=== PATIENT | female | born 1960 ===

== ENCOUNTER 2025-06-19 11:29 | Outpatient (AMB) | payer MEDICARE, MEDICAID, SELFPAY ==
--- NOTE | 2025-06-19 11:39 | HO.NEPHOV_ITS ---
Vital Signs 06/19/25 11:48 Height 5 ft 2.5 in Weight 161 lb 6 oz BMI 29.0 BP 80/60 L Blood Pressure Location Lt brachial Position Sitting Pulse 80 Pulse Source Pulse Oximeter Pulse Oximetry (%) 96 Oxygen Delivery Method Room Air Intake Visit Reasons: ENP: CKD STG 2-Conf Configuration Management Analyst Required: No Accompanied by: Self / Same As Patient Allergies exenatide Allergy (Verified 06/19/25 11:47) Unknown insulin glargine Allergy (Verified 06/19/25 11:47) Swelling HPI Comments Details: I had the privilege of seeing Nela in consultation for CKD and hypertension. She has longstanding poorly-controlled diabetes. DM was diagnosed when she was 33 years of age. Her last hemoglobin A1c was 9.3 . She is on insulin pump now. ( [facility]). She is legal blindness for 2 years . She had laser treatment of eyes. She denies proteinuria or neuropathy. she denies any coronary artery disease, carotid stenosis, CHF, CVA, SALOME or PAD. Her recent serum creatinine was 1.55. She denies any chest pain, shortness of breath, proximal nocturnal dyspnea, orthopnea, pedal edema, pain, hematuria, sensorineural deafness, epistaxis, recurrent sore throat, sinusitis, photosensitivity or any other systemic complaints. She does not have any new bone or back pain. She denies any renal calculi. She claims to be keeping up with hydration and avoiding nonsteroidal anti-inflammatories. She has no family history of ESRD or renal transplantation. [facility] Medical History (Updated 06/19/25 @ 11:47 by Carlos Elias MD) Diabetes mellitus type 1 HLD (hyperlipidemia) Chronic kidney disease, stage 2 (mild) Surgical History (Updated 06/19/25 @ 11:45 by Berkley Barron MA) Hx of removal of cyst H/O eye surgery Family History (Updated 06/19/25 @ 11:44 by Berkley Barron MA) Mother Diabetes mellitus Brother Cancer Sister Cancer Father Hypertension Social History Alcohol intake: current Comment: Rare Patient Tobacco Use Status: Never used Tobacco Review of Systems Const All systems reviewed & are unremarkable except as noted in HPI and below Physical Exam Const General: comfortable and no acute distress Orientation/consciousness: patient oriented x3 HEENT Head: Yes normocephalic Mouth: Normal oral and palatal mucosa present Eyes EOM: EOMs intact bilaterally Neck Neck: Yes supple Resp Auscultation: clear to auscultation bilaterally Cardio Jugular venous distension: no JVD Rate: regular rate GI Palpation (GI): Soft to palpation Auscultation: normal bowel sounds General: Yes no CVA tenderness Back/Spine/Pelvis Back: no CVA tenderness Skin General skin exam: no rashes or lesions noted Neuro General: patient oriented x3 and moves all extremities Extrem General: Yes no pedal edema Assessment & Plan Assessment & Plan (1) CKD stage 3 secondary to diabetes: Code(s): E11.22 - Type 2 diabetes mellitus with diabetic chronic kidney disease; N18.30 - Chronic kidney disease, stage 3 unspecified Category: Medical (2) Hypertension: Code(s): I10 - Essential (primary) hypertension Qualifiers: Hypertension type: primary hypertension Qualified Code(s): I10 - Essential (primary) hypertension Plan 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 Her blood sugar needs to be better controlled. She is on insulin and Ozempic. her blood pressure needs to be at goal. She is on CAROLEE-inhibitor which I shall optimize the dose if her serum potassium, hemodynamics and renal functions permit. I have ordered renal imaging and further CKD workup. She will need 24 hour urine for GFR after next visit. She may need a renal biopsy. She should maintain good hydration and avoid nonsteroidal anti-inflammatories in excess. All these have been explained in detail. Answered all questions and follow-up was given Orders: Orders Electrolytes 3 Weeks E11. - Type 2 diabetes mellitus with diabetic chronic kidney disease, N18.30 - Chronic kidney disease, stage 3 unspecified Calcium 3 Weeks E11. - Type 2 diabetes mellitus with diabetic chronic kidney disease, N18.30 - Chronic kidney disease, stage 3 unspecified Blood Urea Nitrogen 3 Weeks E11. - Type 2 diabetes mellitus with diabetic chronic kidney disease, N18.30 - Chronic kidney disease, stage 3 unspecified Vitamin D 25-OH Total 3 Weeks E11.22 - Type 2 diabetes mellitus with diabetic chronic kidney disease, N18.30 - Chronic kidney disease, stage 3 unspecified UA and rflx microscopic 3 Weeks E11. - Type 2 diabetes mellitus with diabetic chronic kidney disease, N18.30 - Chronic kidney disease, stage 3 unspecified Immunofixation Pnl, Serum 3 Weeks E11. - Type 2 diabetes mellitus with diabetic chronic kidney disease, N18.30 - Chronic kidney disease, stage 3 unspecified US renal BI 3 Weeks E11. - Type 2 diabetes mellitus with diabetic chronic kidney disease, N18.30 - Chronic kidney disease, stage 3 unspecified Complete Blood Count Auto Diff 3 Weeks E11. - Type 2 diabetes mellitus with diabetic chronic kidney disease, N18.30 - Chronic kidney disease, stage 3 unspecified Creatinine 3 Weeks E11. - Type 2 diabetes mellitus with diabetic chronic kidney disease, N18.30 - Chronic kidney disease, stage 3 unspecified Parathyroid Hormone Intact 3 Weeks E11. - Type 2 diabetes mellitus with diabetic chronic kidney disease, N18.30 - Chronic kidney disease, stage 3 unspecified Phosphorus 3 Weeks E11. - Type 2 diabetes mellitus with diabetic chronic kidney disease, N18.30 - Chronic kidney disease, stage 3 unspecified Protein Creatinine Ratio, Ur 3 Weeks E11. - Type 2 diabetes mellitus with diabetic chronic kidney disease, N18.30 - Chronic kidney disease, stage 3 unspecified Coding Level of Care Code New Pt Level 4 (41305) Diagnoses CKD stage 3 secondary to diabetes ; N18.30 Primary hypertension I10 Hypertension type: primary hypertension
[2025-06-19 11:48] VITALS: BP 80/60; PULSE 80; O2SAT 96; BMI 29.0
--- OUTSIDE RECORDS SUMMARY | 2025-06-19 16:20 | XMS_ITS | Clinical Summary ---
Author Organization [facility] Address [address] [facility] [place] [address] Care Team Providers Care Trimming Machine Operator Name Role Phone Unavailable Primary Care Provider Unavailabl e Source Comments PLEASE NOTE, if this patient is a minor, it may be UNLAWFUL to discuss sensitive information that is contained in these records (such as FAMILY PLANNING, MENTAL HEALTH or SUBSTANCE ABUSE) with the minor patient's parent or other person without the patient's specific authorization.[facility] Medications No known medications Active Problems No known active problems Social History Tobacco Use Types Packs/Day Years Used Date Smoking Tobacco: Never Passive Smoke Exposure: Never Smokeless Tobacco: Never Tobacco Cessation:Counseling Given: Not Answered Social Connections Answer Date Recorded Connectedness 0 06/13/2024 Financial Resource Strain Answer Date R ecorded Financial Resource Strain 0 2021 Stress Answer Date Recorded Stress 0 01/19/2022 Physical Activity Answer Date Recorded Physical Activity 0 01/19/2022 Food Insecurity Answer Date Recorded Food 0 06/20/2024 Transportation Needs Answer Date Record ed Transportation 0 01/19/2022 Housing Stability Answer Date Recorded Housing 0 01/19/2022 Safety and Environment Answer Date Efren rded Safety 0 01/19/2022 Utilities Answer Date Recorded Utilities 0 01/19/2022 Employment Answer Date Recorded Stress 0 06/13/2024 Comments Unknown Sex and Gender Information Value Date Recorded Sex Assigned at Female 06/08/2022 12:07 PM PDT Legal Sex Female 12:44 PM PDT Gender Identity Female 06/08/2022 12:07 PM PDT Sexual Orientation Straight 06/08/2022 12 :07 PM PDT Last Filed Vital Signs Vital Sign Reading Time Taken Comments Blood Pressure 123/75 03/17/2025 9:59 AM EDT Pulse 66 03/17/2025 9:59 AM EDT Temperature - - Respiratory Rate - - Oxygen Saturation - - Inhaled Oxygen Concentration - - Weight - - Height - - Body Mass Index - - Plan of Treatment Upcoming Encounters Date Type Department Care Team ([facility] st Contact Info) Description 09/17/2025 10:20 AM EST Office Visit [facility] [address] [place] [phone] Laura Ailin [address] [place] [address] Health Maintenance Due Date Last Done Comments Anxiety Screening 1961 Dental FMX/Pano 1961 HPV Screening 1961 Hepatitis C Screening 1961 Lipid Screening 1961 Pap + HPV 1961 HIV Screening 1976 Cervical Cancer Screening 1982 Pap Smear 1982 Breast Cancer Screening (Mammogram) 2001 CT Colonography 2006 Colonoscopy 2006 Colorectal Cancer Screening 2006 FIT/gFOBT 2006 Fecal DNA 2006 Flexible Sigmoidoscopy 2006 Imm-Zoster, Recombinant (1 of 2) 2011 Imm-Pneumococcal 50+ (2 of 2 - PCV) 10/03/2017 10/03/2016, 11/13/2001 Alcohol and Drug Screen 09/25/2024 Depression Annual Screen 09/25/2024 [id number] (2 - 2024- season) 2025 021 Imm-Influenza (#1) 2025 07/27/2023, 1 , 06/17/2020, Additional history exists Hypertension Screening (#1) 03/17/2026 Tobacco Screening 03/17/2026 03/17/2025 Dental BW 03/19/2026 03/17/2025, 08/26, 03/13/2024, Additional history exists Dental Examination 03/19/2026 03/17/2025, 1 11/14/2023, 03/13/2024, Additional history exists Dental Perio Charting 03/19/2026 03/17/2025 , 09/13/2024, 03/13/2024, Additional history exists Dental Prophy 03/19/2026 03/17/2025, 08/26, 03/13/2024, Additional history exists Diabetes Screening 05/24/2026 05/24/2023 Imm-DTaP/Tdap/Td (2 - Td or Tdap) 10/03/2026 10/03/2016, 07/31/2013, 07/28/2003 Cervical Ablation/Cold-Knife Conization Discontinued Cervical Cryotherapy Discontinued Colposcopy Discontinued Endometrial Biopsy Discontinued Excision/Leep Discontinued HPV Genotyping Discontinued Vaginal Pap Discontinued Vulvoscopy Discontinued Procedures Procedure Name Priority Date/Time Associated Diagnosis Comments COMP PERIODONTAL EVALUATION - NEW/EST PATIENT Routine 03/17/2025 9:40 AM EDT Defective dental anglican BITEWINGS - FOUR RADIOGRAPHIC IMAGES Routine 03/17/2025 9:40 AM EDT Defective dental anglican PROPHYLAXIS - ADULT Routine 03/17/2025 9 :40 AM EDT Defective dental anglican PERIODIC ORAL EVALUATION ESTABLISHED PATIENT Routine 03/17/2025 9:40 AM EDT Defective dental anglican from Last 3 Months or Most Recently Relevant to Health Maintenance Insurance [place] MEDICAID DENTAL
--- OUTSIDE RECORDS SUMMARY | 2025-06-19 16:20 | XMS_ITS | Clinical Summary ---
Author Organization [facility] Address [address] [place] [address] Care Team Providers Care Fruit Rancher Name Role Phone Areli Slaughter MD Primary Care Provider [phone] Allergies Active Allergy Reactions Criticality Noted Date Comments Exenatide Microspheres Itching,Other 06/17/2020 Other reaction(s): burning Lumps at injection site Insulin Glargine Itching 06/17/2020 Other reaction(s): burning, Other (See Comments) Lumps at injection site Medications atorvastatin (Lipitor) 40 mg tablet Take 40 mg by mouth in the morning. 2 Active Dexcom G6 Sensor device SMARTSIG:Topica l Every 10 Days 2 Active brimonidine (AlphaGAN P) 0.2 % ophthalmic solution Administer 1 drop into both eyes in the morning, at noon, and at bedtime. 2 Active Restasis 0.05 % ophthalmic emulsion Administer into both eyes if needed. 2 Active NovoLOG U-100 Insulin aspart 100 unit/mL injection Inject under the skin. 2 Active latanoprost (Xalatan) 0.005 % ophthalmic solution Administer 1 drop into the left eye at bedtime. 2 Active dorzolamide (Trusopt) 2 % ophthalmic solution Administer 1 drop into both eyes in the morning, at noon, and at bedtime. 2 Active lisinopril 5 mg tablet Take 5 mg by mouth in the morning. 2 Active timolol (Timoptic) 0.25 % ophthalmic solution Administer 1 drop into affected eye(s) twice a day. Active Rhopressa 0.02 % ophthalmic solution Administer 1 drop into the left eye twice daily. 3 Active Active Problems Problem Noted Date Diagnosed Date Glaucoma 03/12/2024 Overview (03/12/2024): Bilateral glaucoma, managed by Dr. Wilkes Hypothyroidism 03/12/2024 Cervical intraepithelial neoplasia grade 1 03/12 Mixed hyperlipidemia 08/05/2020 Macular degeneration 08/05/2020 Overview (03/12/2024): Left eye. Managed by Dr. Wilkes. DDD (degenerative disc disease), lumbar 08/05/20 20 Overview (03/12/2024): DDD L5-S1. 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 08/09/2018 Pseudophakia of both eyes 08/09/2018 Dry eye syndrome of both eyes 08/09/2018 Acute iritis, right eye 08/09/2018 Social History Tobacco Use Types Packs/Day Years Used Date Smoking Tobacco: Never Smokeless Tobacco: Never Comments Unknown Sex and Gender Information Value Date Recorded Sex Assigned at Not on file Legal Sex Female 7:59 AM EST Gender Identity Not on file Sexual Orientation Not on file Plan of Treatment Health Maintenance Due Date Last Done Comments CT Colonography 1961 Colonoscopy 1961 Colorectal Cancer Screening 1961 FIT-DNA 1961 FIT 1961 FOBT 1961 HIV Screening 1961 High Risk LDL 1961 Lipid Panel 1961 Sigmoidoscopy 1961 Diabetes: Urine Protein Screening 1961 MMR Vaccines (1 of 1 - Standard series) 1962 Diabetes: Foot Exam 1971 Hepatitis C Screening 1979 Pap Smear 1982 Cervical Cancer Screening 1991 HPV/Cotest 1991 Mammogram 2001 Zoster Vaccines (1 of 2) 2011 Pneumococcal Vaccine: 50+ Years (2 of 2 - PCV) 10/03/2017 10/03/2016, 11/13/2001 Diabetes: Hemoglobin A1C 05/24/2024 05/24/2023 Depression Screening 09/25/2024 Medicare Annual Wellness (AWV) 09/25/2024 Diabetes: Retinopathy Screening 03/12/2025 03/12/2024, 03/12/2024, 03/12/2024, Additional history exists COVID-19 Vaccine ( season) 2025 07/27/2023, 08/30/2021, 02/03/2021, Additional history exists Influenza Vaccine (#1) 2025 , 06/25/2021, 06/17/2020, Additional history exists DTaP/Tdap/Td Vaccines (2 - Td or Tdap) 10/03/2026 10/03/2016, 07/31/2013, 07/28/2003 Pneumococcal Vaccine: Pediatrics (0 to 5 Years) and At-Risk Patients (6 to 49 Years) Discontinued 10/03/2016, 11/13/2001 HIB Vaccines Aged Out No longer eligi ble based on patient's age to complete this topic HPV Vaccines Aged Out No longer eligi ble based on patient's age to complete this topic Hepatitis A Vaccines Aged Out No long er eligible based on patient's age to complete this topic Hepatitis B Vaccines Aged Out No long er eligible based on patient's age to complete this topic IPV Vaccines Aged Out No longer eligi ble based on patient's age to complete this topic Meningococcal B Vaccine Aged Out No l onger eligible based on patient's age to complete this topic Meningococcal Vaccine Aged Out No trang radha eligible based on patient's age to complete this topic Rotavirus Vaccines Aged Out No longer eligible based on patient's age to complete this topic Insurance MEDICAID [employer] Advance Directives Documents on File Type Date Recorded Patient Car Audio Installer Expl anation Health Care Proxy 08/21/2018 6:02 PM Conv ersion - External Healthcare Proxy ([facility]) Care Teams Fruit Rancher Relationship Specialty Start Date End Date Areli Slaughter MD [address] [place] [phone] PCP - General 10/29/21
--- OUTSIDE RECORDS SUMMARY | 2025-06-19 16:20 | XMS_ITS | Clinical Summary ---
Author Organization [facility] Address [address] [place] [id number] Phone Care Team Providers Care Printing Engineer Name Role Phone Annmarie Quintanilla MD Unavailable [phone] Unknown, Unknown Primary Care Provider Ponce lable Allergies Active Allergy Reactions Criticality Noted Date Comments Exenatide Microspheres Itching,Other (Se e Comments) 06/17/2020 Lumps at injection site Insulin Glargine Itching,Other (See Comments) 06/17/2020 Lumps at injection site Medications timolol (TIMOPTIC) 0.25 % ophthalmic solution Place 1 drop into each eye 2 (two) times a day. Active diabetic supplies, miscellan. (Rapid Mobile REMOTE CONTROL) Misc by Miscellaneous route. Active insulin aspart prot/insuln asp (NOVOLOG MIX 70-30 U-100 INSULN SUBQ) Inject under the skin. Via pump Active RESTASIS 0.05 % suspension 10/24/19 22 Active brimonidine 0.2 % ophthalmic solution INSTILL 1 DROP INTO BOTH EYES 3 TIMES A DAY 12/09/19 22 Active dorzolamide (TRUSOPT) 2 % ophthalmic solution INSTILL 1 DROP INTO BOTH EYES 3 TIMES A DAY 12/14/19 22 Active latanoprost (XALATAN) 0.005 % ophthalmic solution INSTILL 1 DROP INTO LEFT EYE DAILY 11/21/19 22 Active atorvastatin (LIPITOR) 40 MG tabletIndications: Mixed hyperlipidemia TAKE 1 TABLET BY MOUTH EVERY DAY 90 tablet 3 05/09/20 22 Active lisinopril (PRINIVIL,ZESTRIL) 5 MG tablet TAKE 1 TABLET BY MOUTH EVERY DAY 90 tablet 3 05/09/20 22 Active Active Problems Problem Noted Date Diagnosed Date Other specified diabetes mellitus with hyperglyc emia 08/05/2020 Overview (08/05/2020): Initially diagnosed as T2DM in 1998, changed to T1DM in 2019. Macular degeneration 08/05/2020 Overview (08/05/2020): Left eye. Managed by Dr. Wilkes. Lumbar spondylosis 08/05/2020 Overview (08/05/2020): L4-L5 anterior spondylosis. DDD (degenerative disc disease), lumbar 08/05/20 20 Overview (08/05/2020): DDD L5-S1. Mixed hyperlipidemia 08/05/2020 Glaucoma Overview (08/05/2020): Bilateral glaucoma, managed by Dr. Wilkes Immunizations Immunization Administration Dates Next Due COVID-19 (Pre-07/17) Pfizer Vaccine, mRNA, PF 08/30/2021 INFLUENZA, SPLIT VIRUS, TRIV ALENT W/ PRESERVATIVE IM 09/08/2015,07/24/2014,07/31/2013,07/31,08/02/2011,06/10/2010 Influenza Quadrivalent MDCK Preservative Free IM 07/27/2023 Influenza Quadrivalent Prese rvative Free IM 06/25/2021,06/17/2020,06/27/2019,07/17 Influenza, Unspecified Formulation 10/03/2016 Influenza, whole 08/31/2007,08/07/2006 Pneumococcal polysaccharide PPSV23 10/03/2016, Td, unspecified formulation 07/31/2013, 3 Tdap 10/03/2016 Social History Tobacco Use Types Packs/Day Years Used Date Smoking Tobacco: Never Smokeless Tobacco: Never Alcohol Use Standard Drinks/Week Comments Yes 2 (1 standard drink = 0.6 oz pur e alcohol) 1 drink, wine cooler, 2 x week Education Answer Date Recorded Are you interested in more education? Not on amandeep e 01/20/2023 Are you concerned about learning? Not on file 01/20/2023 No 01/20/2023 No 01/20/2023 Digital Access Answer Date Recorded No 02/21/2023 No 02/21/2023 Reliable internet access at home? Not on file 02/21/2023 Device with a working camera? Not on file Comments Unknown Sex and Gender Information Value Date Recorded Sex Assigned at Female 04/29/2020 9:46 PM EDT Legal Sex Female 11:12 AM EDT Gender Identity Female 04/29/2020 9:46 PM EDT Sexual Orientation Straight 04/29/2020 9: 46 PM EDT Last Filed Vital Signs Vital Sign Reading Time Taken Comments Blood Pressure 118/68 12/20/2021 4:09 PM EDT Pulse 67 12/20/2021 4:09 PM EDT Temperature 36.3 C (97.3 F) 11/09/2020 2:19 PM EST Respiratory Rate 16 12/20/2021 4:09 PM EDT Oxygen Saturation 98% 12/20/2021 4:09 PM EDT Inhaled Oxygen Concentration - - Weight 74.6 kg (164 lb 6.4 oz) 12/20/2021 4:09 P M EDT Height 159.4 cm (5' 2.76 ) 12/20/2021 4:09 PM ED T Body Mass Index 29.35 12/20/2021 4:09 PM EDT Plan of Treatment Health Maintenance Due Date Last Done Comments BLOOD PRESSURE 1961 HEPATITIS C SCREENING 1979 HIV ONE-TIME SCREENING (18-65 YEARS) 1979 COLOGUARD 2006 FIT TEST 2006 FOBT 2006 SIGMOIDOSCOPY 2006 VIRTUAL COLONOSCOPY 2006 ZOSTER VACCINES (1 of 2) 2011 PNEUMOCOCCAL VACCINES (50+ years) (2 of 2 - PCV) 10/03/2017 10/03/2016, 11/13/2001 HEMOGLOBIN A1C 07/02/2020 04/01/2020 POTASSIUM LEVEL 04/01/2021 04/01/2020 RSV VACCINE (1 - Risk 60-74 years 1-dose series) 2021 COLONOSCOPY 05/07/2022 05/07/2012 COLORECTAL CANCER SCREENING 05/07/2022 PAP SMEAR 06/05/2022 06/05/2019 CREATININE LEVEL 12/20/2022 12/20/2021, 04/01/2020 DEPRESSION SCREENING 12/20/2022 12/20/2021 DIABETIC EYE EXAM 05/23/2024 05/23/2023, , 06/08/2021, Additional history exists MAMMOGRAM 03/23/2025 03/23/2023, 02/24, 03/20/2021, Additional history exists INFLUENZA VACCINE (#1) 2025 , 06/25/2021, 06/17/2020, Additional history exists COVID-19 VACCINE ( season) 2025 07/27/2023, 08/30/2021, 02/03/2021, Additional history exists Adult Td,Tdap Booster 10/03/2026 10/03/2016 , 07/31/2013, 07/28/2003 SMOKING STATUS SCREENING (Once After 26 Yrs) Completed 12/20/2021 HEPATITIS A VACCINES Aged Out No long er eligible based on patient's age to complete this topic HIB VACCINES Aged Out No longer eligi ble based on patient's age to complete this topic MENINGOCOCCAL VACCINES (ACWY) Aged Out No longer eligible based on patient's age to complete this topic MENINGOCOCCAL VACCINES (B) Aged Out N o longer eligible based on patient's age to complete this topic Medical Devices Not on file Procedures Procedure Name Priority Date/Time Associated Diagnosis Comments DIABETES EYE EXAM FOR RESULT ENTRY ONLY Routine 05/23/2023 MAMMOGRAPHY Routine 03/23/2023 OUTSIDE HEMOGLOBIN A1C Routine 04/01/2020 OUTSIDE POTASSIUM LEVEL Routine 04/01/2020 OUTSIDE SERUM CREATININE LEVEL Routine 04/01/2020 PAP SMEAR FOR RESULT ENTRY ONLY Routine 06/05/2019 COLONOSCOPY FOR RESULT ENTRY ONLY Routine 05/07/2012 from Last 3 Months or Most Recently Relevant to Health Maintenance Results * DIABETES EYE EXAM FOR RESULT ENTRY ONLY (05/23/2023) Result [facility] Historical Seb [facility] HEALTH MAINTENANCE Final Result * MAMMOGRAPHY FOR RESULT ENTRY ONLY (03/23/2023) John Daley MD HEALTH MAINTENANCE Edited Result - Final * Outside Potassium Level (04/01/2020) Pathologist [facility] Potassium level - External 4.2 3.4 - 5.0 mmol/L Result [facility] Provider LAB BLOOD ORDERABLES Daria l Result * Outside HbA1c (04/01/2020) Pathologist [facility] Hemoglobin A1c - External 8.9 % Result [facility] Provider LAB BLOOD ORDERABLES Daria l Result * (ABNORMAL) Outside Serum Creatinine Level (04/01/2020) Pathologist [facility] Creatinine, serum - External 1.4(A) 0.8 - 1.3 mg/dL Result [facility] Provider LAB BLOOD ORDERABLES Daria l Result * PAP SMEAR FOR RESULT ENTRY ONLY (06/05/2019) [facility] Pap smear NILM, HPV negative Result [facility] Provider HEALTH MAINTENANCE Final Result * COLONOSCOPY FOR RESULT ENTRY ONLY (05/07/2012) [facility]ologist [facility] Colonoscopy 10 yr recall Result [facility] Se[facility] HEALTH MAINTENANCE Final Result from Last 3 Months or Most Recently Relevant to Health Maintenance Insurance MEDICARE PART A & B MEDICARE PART A & B MEDICARE PART A & B MEDICARE PART A & B MEDICARE PART A & B MEDICARE PART A & B MEDICARE PART A & B MEDICARE PART A & B MEDICARE PART A & B Care Teams Printing Engineer Relationship Specialty Start Date End Date Unknown, Unknown, MD PCP - General 07/28/23 Annmarie Quintanilla MD [address] [place] [phone] [email or web address] Endocrinology 12/06/21 Additional Source Comments The information contained in this document represents components of the legal health record. It is not the complete legal health record.[facility]
== END 2025-06-19 12:09 | disposition home or self-care (01) ==
LOC: HO.HKAS 11:30
PROVIDERS: PCP Internal Medicine; Referring Provider Internal Medicine; Visit Provider Internal Medicine Nephrology
DX: E11.22 Type 2 diabetes mellitus with diabetic chronic kidney disease (principal); N18.30 Chronic kidney disease, stage 3 unspecified; I10 Essential (primary) hypertension
CPT/HCPCS: 99204

== ENCOUNTER → 2025-06-19 11:29 | Outpatient (BNVA) | payer MEDICARE, MEDICAID, SELFPAY | PROVIDERS: PCP Internal Medicine; Referring Provider Internal Medicine; Visit Provider Internal Medicine Nephrology | DX: E11.22 Type 2 diabetes mellitus with diabetic chronic kidney disease (principal); N18.30 Chronic kidney disease, stage 3 unspecified; I10 Essential (primary) hypertension | CPT/HCPCS: 99202 ==

== ENCOUNTER 2025-06-23 10:56 | Outpatient (REF) | payer MEDICARE, MEDICAID, SELFPAY ==
--- OUTSIDE RECORDS SUMMARY | 2025-06-23 12:27 | XMS_ITS | Clinical Summary ---
Author Organization [facility] Address [address] [facility] [place] [address] Care Team Providers Care Correctional Corporal Name Role Phone Unavailable Primary Care Provider [...] Upcoming Encounters Date Type Department Care Team ([facility] st Contact Info) Description 09/17/2025 10:20 AM EST Office Visit [facility] [address] [place] [phone] Laura Ailin [address] [place] [address] Health Maintenance Due Date Last Done Comments [...] Drug Screen 09/25/2024 Depression Annual Screen 09/25/2024 [id number] (2 - 2024- season) 2025 021 Imm-Influenza [...] Routine 03/17/2025 9:40 AM EDT Defective dental mandaen BITEWINGS - FOUR RADIOGRAPHIC IMAGES Routine 03/17/2025 9:40 AM EDT Defective dental mandaen PROPHYLAXIS - ADULT Routine 03/17/2025 9 :40 AM EDT Defective dental mandaen PERIODIC ORAL EVALUATION ESTABLISHED PATIENT Routine 03/17/2025 9:40 AM EDT Defective dental mandaen from Last 3 Months or Most Recently Relevant to Health Maintenance Insurance [place] MED[place]ID DENT[place]
--- OUTSIDE RECORDS SUMMARY | 2025-06-23 12:27 | XMS_ITS | Encounter Summary ---
Author Organization [facility] Address [address] [place] [address] Care Team Providers Care Polygraph Examiner Name Role Phone Paulino Bonds MD Primary Care Provider [phone] Encounter Details Date Type Department Care Team (Late st Contact Info) Description 06/03/2025 Telephone Internal Medicine - [place] [address] [place] [phone] Paulino Bonds MD 175 [facility] [address] [place] [address] Social History Tobacco Use Types Packs/Day Years Used Date Smoking Tobacco: Never Smokeless Tobacco: Never Alcohol Use Standard Drinks/Week Comments Never 0 (1 standard drink = 0.6 oz pur e alcohol) Comments Unknown Sex and Gender Information Value Date Recorded Sex Assigned at Not on file Legal Sex Female 6:55 AM EST Gender Identity Female 05/25/2025 9:51 AM EDT Sexual Orientation Not on file documented as of this encounter Progress Notes * Shira Nunn MA - 06/03/2025 3:13 PM EDT Spoke to patient and stated notes and blood work were faxed over to specialist also faxed referral. * Jordana Mancuso - 06/03/2025 10:51 AM EDT Request to fax last office note All lab and med list to Dr. Elias/Nephrology [address] [place] [address] Per patient request documented in this encounter Plan of Treatment Upcoming Encounters Date Type Department Care Team (Late st Contact Info) Description 11/28/2025 9:45 AM EST Office Visit Internal Medicine - [place] [address] [phone] Paulino Bonds MD [address] [address] documented as of this encounter Visit Diagnoses Not on filedocumented in this encounter Care Teams Polygraph Examiner Relationship Specialty Start Date End Date Paulino Bonds MD [address] [address] PCP - General 11/14/23 documented as of this encounter
--- OUTSIDE RECORDS SUMMARY | 2025-06-23 12:27 | XMS_ITS | Clinical Summary ---
Author Organization 175 [facility] Address [address] [place] [address] Phone Care Team Providers Care Facilities Engineering Manager Name Role Phone Paulino Bonds MD Primary Care Provider [phone] Allergies Active Allergy Reactions Criticality Noted Date Comments Exenatide 11/28/2023 Insulin Glargine Low 11/28/2023 Other Reaction(s): injection site swelling Medications bisacodyL (DULCOLAX) 5 mg EC tablet Take 2 tabs at 6pm as directed. 01/17/20 24 Active brimonidine (ALPHAGAN) 0.2 % ophthalmic solution 1 drop 3 (three) times a day. Active cycloSPORINE 0.05 % drops Place 1 Drop into the left eye 2 times daily. Active dorzolamide (TRUSOPT) 2 % ophthalmic solution Administer 1 drop into both eyes 3 (three) times a day. Active latanoprost (XALATAN) 0.005 % ophthalmic solution Place 1 Drop into the left eye at bedtime. Active insulin aspart (NovoLOG) 100 UNIT/ML injection Inject into the skin. Active TIMOLOL OPHT TIMOLOL HEMIHYDRATE OP Sig - Route: apply 1 Drop to the eye 2 times daily. - Ophthalmic Class: Historic Active betamethasone dipropionate (DIPROSONE) 0.05 % cream Apply twice a day on the hand the rash for 7 days 45 g 3 11/28/19 25 Active lisinopriL (PRINIVIL,ZESTR IL) 5 mg tablet Take 1 tablet (5 mg total) by mouth 1 (one) time each day. 90 tablet 1 03/31/20 25 Active atorvastatin (LIPITOR) 80 mg tablet Take 1 tablet (80 mg total) by mouth 1 (one) time each day. 90 each 1 05/30/20 25 Active atorvastatin (LIPITOR) 40 mg tablet Take 1 tablet (40 mg total) by mouth 1 (one) time each day. 90 tablet 1 10/15/19 25 025 Discontinued Active Problems Problem Noted Date Diagnosed Date Hyperlipidemia DM type 1 (diabetes mellitus , type 1) ([facility] V24, [facility] V28) Resolved Problems Problem Noted Date Diagnosed Date Resolved Date HTN (hypertension) Encounters Date Type Department Care Team Description 06/03/2025 Telephone Internal Medicine [address] [address] Paulino Bonds MD 05/30/2025 9:45 AM EDT Office Visit Internal Medicine [address] [phone] Paulino Bonds MD Primary hypertension (Primary Dx); Hypercholesterolemia; Type 2 diabetes mellitus without complication, with long-term current use of insulin ([facility] V24, [facility] V28); CKD (chronic kidney disease) stage 2, GFR 60-89 ml/min from Last 3 Months Medical History Medical History Date Comments Hyperlipidemia DM type 1 (diabetes mellitus, type 1) ([facility] V 24, [facility] V28) Social History Tobacco Use Types Packs/Day Years [...] AM EDT Sexual Orientation Not on file Obstetrics History Last Filed Vital Signs Vital Sign Reading Time Taken Comments Blood Pressure 120/60 05/30/2025 9:36 AM EDT Pulse 69 05/30/2025 9:36 AM EDT Temperature 36.1 C (96.9 F) 05/30/2025 9:36 AM EDT Respiratory Rate - - Oxygen Saturation 98% 05/30/2025 9:36 AM EDT Inhaled Oxygen Concentration - - Weight 71.8 kg (158 lb 6.4 oz) 05/30/2025 9:36 A M EDT Height 157.5 cm (5' 2 ) 05/30/2025 9:36 AM EDT Body Mass Index 28.97 05/30/2025 9:36 AM EDT Plan of Treatment Upcoming Encounters Date Type Department Care Team (Late st Contact Info) Description 11/28/2025 9:45 AM EST Office Visit Internal Medicine - [place] [address] [facility] [address] [place] [phone] Paulino Bonds MD [address] [facility] [address] [place] [address] Health Maintenance Due Date Last Done Comments Breast Cancer Screening 1961 Diabetes: Annual Foot Exam 1971 Diabetes: Annual Retina Eye Exam 1971 Cervical Cancer Screening: Pap Smear 1982 Zoster Vaccines (1 of 2) 2011 Pneumococcal Vaccine: 50+ Years (2 of 2 - PCV) 10/03/2017 10/03/2016, 11/13/2001 RSV Immunization Adult Patients (1 - Risk 60-74 years 1-dose series) 2021 HIV Screening 04/23/2024 Hepatitis C Screening 04/23/2024 Medicare Annual Wellness Visit 04/23/2024 Social Influencers of Health Screening 04/23/2024 Depression Screening 09/25/2024 Diabetes: Annual Urine Albumin-Creatinine Ratio (uACR) 11/27/2024 Influenza Vaccine (#1) 2025 3, 06/25/2021, 06/17/2020, Additional history exists Diabetes: Blood Sugar Control Test (HGBA1C) 11/05/2025 05/05/2025 Diabetes: Annual GFR (Glomerular Filtration Rate) 05/05/2026 05/05/2025 Hypertension/CHF/CAD Annual BMP Blood Test 05/05/2026 05/05/2025 DTaP,Tdap,and Td Vaccines (4 - Td or Tdap) 10/03/2026 10/03/2016, 07/31/2013, 07/28/2003 Cholesterol Screening (Lipid Panel) 05/05/2030 05/05/2025 Colorectal Cancer Screening: Colonoscopy 01/30/2034 01/31/2024 COVID-19 Vaccine Completed 06/15/2024, 10/2022, 08/30/2021, Additional history exists HIB Vaccines Aged Out No longer eligi [...] on patient's age to complete this topic MMR Vaccines Aged Out No longer eligi ble based on patient's age to complete this topic Meningococcal ACWY Vaccine Aged Out N o longer eligible based on patient's age to complete this topic Meningococcal B Vaccine Aged Out No l onger eligible based on patient's age to complete this topic RSV Immunization Patients Under 20 months Aged Out No longer eligible based on patient's age to complete this topic Varicella Vaccines Aged Out No longer eligible based on patient's age to complete this topic Procedures Procedure Name Priority Date/Time Associated Diagnosis Comments THYROID STIMULATING HORMONE Routine 05/30/2025 10:23 AM EDT Primary hypertension Hypercholesterolemia Type 2 diabetes mellitus without complication, with long-term current use of insulin ([facility] V24, [facility] V28) CKD (chronic kidney disease) stage 2, GFR 60-89 ml/min HEMOGLOBIN A1C Routine 05/05/2025 9:17 AM EDT 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, unspecified retinopathy severity (CMS/HCC V24, CMS/HCC V28) LIPID PANEL WITH REFLEX TO DIRECT LDL Routine 05/05/2025 9:17 AM EDT Hyperlipidemia, unspecified hyperlipidemia type COMPREHENSIVE METABOLIC PANEL Routine 05/05/2025 9:17 AM EDT 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, unspecified retinopathy severity (CMS/HCC V24, [facility] V28) Hyperlipidemia, unspecified hyperlipidemia type COLONOSCOPY Routine 01/31/2024 from Last 3 Months or Most Recently Relevant to Health Maintenance Results * Thyroid stimulating hormone (05/30/2025 10:23 AM EDT) Pathologist [facility] TSH 3.60 0.40 - 4.00 mcIU/mL LAB CHEMISTRY METHOD 05/30/2025 3:01 PM EDT [facility] Blood Venous blood specimen / Unknown Venipuncture / Unknown 05/30/2025 10:23 AM EDT 05/30/2025 10:23 AM EDT us Paulino Bonds MD LAB BLOOD ORDERABLES Final Resul t [facility] [address] [place] [address], [place] [phone] * (ABNORMAL) Lipid panel with reflex to direct LDL (05/05/2025 9:17 AM EDT) Pathologist [facility] Cholesterol 249(H) 0 - 200 mg/dL LAB CHEMISTRY METHOD 05/05/2025 10:41 AM EDT [facility] Triglycerides 98 0 - 150 mg/dL LAB CHEMISTRY METHOD 05/05/2025 10:[address] [facility] HDL 94 >=40 mg/dL LAB CHEMISTRY METHOD 05/05/2025 10:41 AM EDT [facility] LDL Calculated 135(H) 0 - 100 mg/dL LAB CHEMISTRY METHOD 05/05/2025 10:[address] [facility] Comment:Estimated LDL Calcul ated using equation: Total cholesterol - HDL cholesterol - (Triglycerides/5) VLDL Cholesterol Don 19.6 mg/dL LAB CHEMISTRY METHOD 05/05/2025 10:[address] [facility] Non HDL Chol. (LDL+VLDL) 155(H) <145 mg/dL LAB CHEMISTRY METHOD 05/05/2025 10:41 AM EDT [facility] Chol/HDL Ratio 2.6 0.0 - 4.4 LAB CHEMISTRY METHOD 05/05/2025 10:41 AM EDT [facility] Blood Venous blood specimen / Unknown Venipuncture / Unknown 05/05/2025 9:17 AM EDT 05/05/2025 9:17 AM EDT Emily ESPARZA LAB BLOOD ORDERABLES Fin al Result Performing Organization Address [facility] de Phone Number [facility] [address] [place] [address], [place] [phone] * (ABNORMAL) Hemoglobin A1c (05/05/2025 9:17 AM EDT) Hemoglobin A1C 9.3(H) <6.5 % LAB CHEMISTRY METHOD 05/05/2025 11:30 AM EDT [facility] Mean Bld Glu Estim. 220 mg/dL LAB CHEMISTRY METHOD 05/05/2025 11:30 AM EDT [facility] Blood Venous blood specimen / Unknown Venipuncture / Unknown 05/05/2025 9:17 AM EDT 05/05/2025 9:17 AM EDT us Emily ESPARZA LAB BLOOD ORDERABLES Fin al Result Performing Organization Address [facility]/ZIP Co de Phone Number [facility] [address] [place] [address], [place] [phone] * (ABNORMAL) Comprehensive metabolic panel (05/05/2025 9:17 AM EDT) Sodium 140 133 - 145 mmol/L LAB CHEMISTRY METHOD 05/05/2025 10:32 AM EDT [facility] Potassium 4.4 3.5 - 5.5 mmol/L LAB CHEMISTRY METHOD 05/05/2025 10:32 AM EDT [facility] Chloride 106 96 - 110 mmol/L LAB CHEMISTRY METHOD 05/05/2025 10:[address] [facility] CO2 29 21 - 32 mmol/L LAB CHEMISTRY METHOD 05/05/2025 10:[address] [facility] Anion Gap 5 3 - 11 LAB CHEMISTRY METHOD 05/05/2025 10:[address] [facility] Glucose 102(H) 70 - 100 mg/dL LAB CHEMISTRY METHOD 05/05/2025 10:[address] [facility] BUN 36(H) 5 - 25 mg/dL LAB CHEMISTRY METHOD 05/05/2025 10:[address] [facility] Creatinine 1.55(H) 0.50 - 1.10 mg/dL LAB CHEMISTRY METHOD 05/05/2025 10:[address] [facility] eGFR 37(L) >=60 mL/min/1. 73m2 LAB CHEMISTRY METHOD 05/05/2025 10:[address] [facility] Comment:Calculation based on the Chronic Kidney Disease Epidemiology Collaboration (CKD-EPI) equation refit without adjustment for race. BUN/Creatinine Ratio 23.2 LAB CHEMISTRY METHOD 05/05/2025 10:[address] [facility] Calcium 9.3 8.5 - 10.5 mg/dL LAB CHEMISTRY METHOD 05/05/2025 10:[address] [facility] AST (SGOT) 15 10 - 42 unit/L LAB CHEMISTRY METHOD 05/05/2025 10:[address] [facility] ALT (SGPT) 31 10 - 60 unit/L LAB CHEMISTRY METHOD 05/05/2025 10:[address] [facility] Alkaline Phosphatase 117 42 - 121 unit/L LAB CHEMISTRY METHOD 05/05/2025 10:[address] [facility] Total Protein 7.6 6.0 - 8.0 g/dL LAB CHEMISTRY METHOD 05/05/2025 10:32 AM EDT [facility] Albumin 3.9 3.2 - 5.0 g/dL LAB CHEMISTRY METHOD 05/05/2025 10:32 AM EDT [facility] Total Bilirubin 0.4 0.0 - 1.4 mg/dL LAB CHEMISTRY METHOD 05/05/2025 10:32 AM EDT [facility] Blood Venous blood specimen / Unknown Venipuncture / Unknown 05/05/2025 9:17 AM EDT 05/05/2025 9:17 AM EDT Emily ESPARZA LAB BLOOD ORDERABLES Fin al Result [facility] [address] [place] [address], [place] [phone] * Colonoscopy (01/31/2024) Colonoscopy abnormal, abstracted Anatomical Region Laterality Modality Other Historical Provider HEALTH MAINTENANCE Final Result from Last 3 Months or Most Recently Relevant to Health Maintenance Insurance [place]ICA[place] [employer] MEDICARE ADVANTAGE Care Teams Facilities Engineering Manager Relationship Specialty Start Date End Date Paulino Bonds MD [address] [address] PCP - General 11/14/23
--- OUTSIDE RECORDS SUMMARY | 2025-06-23 12:27 | XMS_ITS | Clinical Summary ---
Author Organization [facility] Address [address] [facility] [address] [place] [address] Care Team Providers Care Dogger Name Role Phone Areli Slaughter MD Primary Care Provider [phone] Allergies Active Allergy Reactions Criticality Noted Date [...] Documents on File Type Date Recorded Patient Operating Room Technologist Expl anation Health Care Proxy 08/21/2018 6:02 PM Conv ersion - External Healthcare Proxy ([facility]) Care Teams Dogger Relationship Specialty Start Date End Date Areli Slaughter MD [address] [place] [id number] PCP - General 10/29/21
--- OUTSIDE RECORDS SUMMARY | 2025-06-23 12:28 | XMS_ITS | Clinical Summary ---
Author Organization [facility] Address [address] [place] [phone] Phone Care Team Providers Care It Systems Manager Name Role Phone Annmarie Quintanilla MD Unavailable [phone] Unknown, Unknown Primary Care Provider Ponce lable Allergies Active Allergy Reactions Criticality Noted Date Comments Exenatide Microspheres Itching,Other (Se e Comments) 06/17/2020 Lumps at injection site Insulin Glargine Itching,Other (See Comments) 06/17/2020 Lumps at injection site Medications timolol (TIMOPTIC) 0.25 % ophthalmic solution Place 1 drop into each eye 2 (two) times a day. Active diabetic supplies, miscellan. (3 day Blinds REMOTE CONTROL) Misc by Miscellaneous route. Active [...] EXAM FOR RESULT ENTRY ONLY (05/23/2023) Result [facility] Historical Seb [facility] HEALTH MAINTENANCE Final Result * MAMMOGRAPHY FOR RESULT ENTRY ONLY (03/23/2023) John Daley MD HEALTH MAINTENANCE Edited Result - Final * Outside Potassium Level (04/01/2020) Pathologist [facility] Potassium level - External 4.2 3.4 - 5.0 mmol/L Result [facility] Provider LAB BLOOD ORDERABLES Daria l Result * Outside HbA1c (04/01/2020) Pathologist [facility] Hemoglobin A1c - External 8.9 % Result [facility] Provider LAB BLOOD ORDERABLES Daria l Result * (ABNORMAL) Outside Serum Creatinine Level (04/01/2020) Pathologist [facility] Creatinine, serum - External 1.4(A) 0.8 - 1.3 mg/dL Result [facility] Provider LAB BLOOD ORDERABLES Daria l Result * PAP SMEAR FOR RESULT ENTRY ONLY (06/05/2019) Pathologist [facility] Pap smear NILM, HPV negative Result [facility] Provider HEALTH MAINTENANCE Final Result * COLONOSCOPY FOR RESULT ENTRY ONLY (05/07/2012) Pathologist [facility] Colonoscopy 10 yr recall Result [facility] Seb [facility] HEALTH MAINTENANCE Final Result [...] MEDICARE PART A & B Care Teams It Systems Manager Relationship Specialty Start Date End Date Unknown, Unknown, MD PCP - General 07/28/23 Annmarie Quintanilla MD [address] [place] [id number] [email or web address] Endocrinology 12/06/21 Additional Source Comments The information contained in this document represents components of the legal health record. It is not the complete legal health record.[facility]
[2025-06-23 13:30] LABS: MANUAL DIFF FLAG NO
[2025-06-23 13:46] LABS: Hematocrit 38.5 % (37.0-47.0); Hemoglobin 12.3 g/dl (12.0-16.0); Imm Gran Abs Auto 0.01 X10*3/uL (0.00-0.03); Imm Gran Pct Auto 0.2 % (0.0-0.4); Lymphocytes Absolute Auto 2.2 X10*3/uL (1.2-4.9); Mean Corpuscular HGB Conc 31.9 g/dl (31.0-35.0); Mean Corpuscular Hemoglobin 29.0 pg (27.0-33.0); Mean Corpuscular Volume 90.8 fL (80.0-98.0); NRBC Abs Auto 0.000 X10*3/uL (0.0-0.012); NRBC Pct Auto 0.0 /100WBC (0.0-0.2); Platelet Count 143 X10*3/uL (160-400); Red Blood Count 4.24 X10*6/uL (4.20-5.50); White Blood Count 5.7 X10*3/uL (4.8-10.8)
[2025-06-23 13:58] LABS: Appearance Urine Clear; Glucose Urine UA Negative (Negative); PH 5.0 (5.0-9.0); Specific Gravity - Urine 1.025 (1.005-1.025)
[2025-06-23 14:10] LABS: Protein/Creatinine Ratio, Ur 0.03 (<0.2); Total Protein Urine Random 10 mg/dL (<12)
[2025-06-23 14:33] LABS: Parathyroid Hormone Intact 27.5 pg/mL (8.7-77.1)
[2025-06-23 14:40] LABS: Anion Gap 12 (12-20); Blood Urea Nitrogen 41 mg/dL (9-16); Calcium 10.7 mg/dL (8.4-10.2); Carbon Dioxide 30 mmol/L (22-29); Chloride 104 mmol/L (96-108); Estimated Glomerular Filt Rate 32; Potassium 4.2 mmol/L (3.3-5.1); Sodium 142 mmol/L (135-145)
== END 2025-06-23 10:57 | disposition home or self-care (01) ==
LOC: HO.HKASLDS 10:56
PROVIDERS: Visit Provider Internal Medicine Nephrology
DX: E11.22 Type 2 diabetes mellitus with diabetic chronic kidney disease (principal); N18.30 Chronic kidney disease, stage 3 unspecified
CPT/HCPCS: 36415; 80051; 81003; 82306; 82310; 82565; 82570; 82784; 83970; 84100; 84156; 84520; 85025; 86334

== ENCOUNTER 2025-07-24 11:32 | Outpatient (AMB) | payer MEDICARE, MEDICAID, SELFPAY ==
--- NOTE | 2025-07-24 12:01 | HO.NEPHOV ---
Vital Signs 07/24/25 12:02 Height 5 ft 2.5 in Weight 155 lb 2 oz BMI 27.9 BP 80/50 L Blood Pressure Location Lt brachial Position Sitting Pulse 77 Pulse Source Pulse Oximeter Pulse Oximetry (%) 97 Oxygen Delivery Method Room Air Intake Visit Reasons: 1month-Conf Detective Captain Required: No Accompanied by: Self / Same As Patient Allergies exenatide Allergy (Verified 07/24/25 12:02) Unknown insulin glargine Allergy (Verified 07/24/25 12:02) Swelling HPI Comments Details: I had the privilege of seeing Nela in follow up for CKD and hypertension. She has longstanding poorly-controlled diabetes. DM was diagnosed when she was 33 years of age. Her last hemoglobin A1c was 9.3 . She is on insulin pump now. ( [facility]). She is legal blindness for 2 years . She had laser treatment of eyes. She denies proteinuria or neuropathy. she denies any coronary artery disease, carotid stenosis, CHF, CVA, SALOME or PAD. Her recent serum creatinine was 1.6. She denies any chest pain, shortness of breath, proximal nocturnal dyspnea, orthopnea, pedal edema, pain, hematuria, sensorineural deafness, epistaxis, recurrent sore throat, sinusitis, photosensitivity or any other systemic complaints. She does not have any new bone or back pain. She denies any renal calculi. She claims to be keeping up with hydration and avoiding nonsteroidal anti-inflammatories. She has no family history of ESRD or renal transplantation. [facility] Medical History (Updated 06/19/25 @ 11:47 by Carlos Elias MD) Diabetes mellitus type 1 HLD (hyperlipidemia) Chronic kidney disease, stage 2 (mild) Surgical History Hx of removal of cyst H/O eye surgery Family History Mother Diabetes mellitus Brother Cancer Sister Cancer Father Hypertension Social History Alcohol intake: current Comment: Rare Patient Tobacco Use Status: Never used Tobacco Review of Systems Const All systems reviewed & are unremarkable except as noted in HPI and below Physical Exam Vital Signs: Last Vital Signs Pulse 77 07/24/25 12:02 BP 80/50 L 07/24/25 12:02 Pulse Ox 97 07/24/25 12:02 Oxygen Delivery Method Room Air 07/24/25 12:02 BMI result Body Mass Index 27.9 Const General: comfortable and no acute distress Orientation/consciousness: patient oriented x3 HEENT Head: Yes normocephalic Mouth: Normal oral and palatal mucosa present Eyes EOM: EOMs intact bilaterally Neck Neck: Yes supple Resp Auscultation: clear to auscultation bilaterally Cardio Jugular venous distension: no JVD Rate: regular rate GI Palpation (GI): Soft to palpation Auscultation: normal bowel sounds General: Yes no CVA tenderness Back/Spine/Pelvis Back: no CVA tenderness Skin General skin exam: no rashes or lesions noted Neuro General: patient oriented x3 and moves all extremities Extrem General: Yes no pedal edema Results Reviewed Nephrology Results: Hgb, (12.0-16.0) 12.3 g/dl 06/23/25 WBC, (4.8-10.8) 5.7 X10*3/uL 06/23/25 Plt Count, (160-400) 143 X10*3/uL L 06/23/25 Sodium, (135-145) 142 mmol/L 06/23/25 Potassium, (3.3-5.1) 4.2 mmol/L 06/23/25 Chloride, (96-108) 104 mmol/L 06/23/25 Carbon Dioxide, (22-29) 30 mmol/L H 06/23/25 BUN, (9-16) 41 mg/dL H 06/23/25 Creatinine, (0.5-1.4) 1.61 mg/dL H 06/23/25 Calcium, (8.4-10.2) 10.7 mg/dL H 06/23/25 Phosphorus, (2.7-4.5) 4.3 mg/dL 06/23/25 PTH Intact, (8.7-77.1) 27.5 pg/mL 06/23/25 Urine Protein, (Neg-Trace) Negative mg/dL 06/23/25 Urine Creatinine 344.49 mg/dL 06/23/25 Protein/Creatinin Ratio, (<0.2) 0.03 06/23/25 Assessment & Plan Assessment & Plan (1) CKD stage 3 secondary to diabetes: Code(s): E11.22 - Type 2 diabetes mellitus with diabetic chronic kidney disease; N18.30 - Chronic kidney disease, stage 3 unspecified Category: Medical Plan 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 Her blood sugar needs to be better controlled. She is on insulin and Ozempic. She is on CAROLEE-inhibitor which I shall optimize the dose if her serum potassium, hemodynamics and renal functions permit. I have reviewed CKD workup. She will need 24 hour urine for GFR with time. She does not need a renal biopsy now. She should maintain good hydration and avoid nonsteroidal anti-inflammatories in excess. All these have been explained in detail. Answered all questions and follow-up was given Orders: Orders Protein Creatinine Ratio, Ur 3 Months E11.22 - Type 2 diabetes mellitus with diabetic chronic kidney disease, N18.30 - Chronic kidney disease, stage 3 unspecified Creatinine 3 Months E11.22 - Type 2 diabetes mellitus with diabetic chronic kidney disease, N18.30 - Chronic kidney disease, stage 3 unspecified Electrolytes 3 Months E11.22 - Type 2 diabetes mellitus with diabetic chronic kidney disease, N18.30 - Chronic kidney disease, stage 3 unspecified Blood Urea Nitrogen 3 Months E11.22 - Type 2 diabetes mellitus with diabetic chronic kidney disease, N18.30 - Chronic kidney disease, stage 3 unspecified Calcium 3 Months E11.22 - Type 2 diabetes mellitus with diabetic chronic kidney disease, N18.30 - Chronic kidney disease, stage 3 unspecified Coding Level of Care Code Est Pt Level 4 (41469) Diagnoses CKD stage 3 secondary to diabetes E11.22; N18.30
[2025-07-24 12:02] VITALS: BP 80/50; PULSE 77; O2SAT 97; BMI 27.9
--- OUTSIDE RECORDS SUMMARY | 2025-07-24 14:30 | XMS_ITS | Clinical Summary ---
Author Organization [facility] Address [address] [facility] [address] [place] [address] Care Team Providers Care Electrical And Instrument Engineer Name Role Phone Areli Slaughter MD Primary Care Provider [phone] Allergies Active Allergy Reactions Criticality Noted Date [...] Documents on File Type Date Recorded Patient Waiter/Waitress Informal Expl anation Health Care Proxy 08/21/2018 6:02 PM Conv ersion - External Healthcare Proxy ([facility]) Care Teams Electrical And Instrument Engineer Relationship Specialty Start Date End Date Areli Slaughter MD [address] [place] [id number] PCP - General 10/29/21
--- OUTSIDE RECORDS SUMMARY | 2025-07-24 14:30 | XMS_ITS | Clinical Summary ---
Author Organization [facility] Address [address] [place] [id number] Phone Care Team Providers Care Melting Operator Name Role Phone Annmarie Quintanilla MD Unavailable [phone] Unknown, Unknown Primary Care Provider Ponce lable Allergies Active Allergy Reactions Criticality Noted Date Comments Exenatide Microspheres Itching,Other (Se e Comments) 06/17/2020 Lumps at injection site Insulin Glargine Itching,Other (See Comments) 06/17/2020 Lumps at injection site Medications timolol (TIMOPTIC) 0.25 % ophthalmic solution Place 1 drop into each eye 2 (two) times a day. Active diabetic supplies, miscellan. ([employer] REMOTE CONTROL) Misc by Miscellaneous route. Active [...] FOBT 2006 SIGMOIDOSCOPY 2006 VIRTUAL COLONOSCOPY 2006 RSV VACCINE (1 - Risk 50-74 years 1-dose series) 2011 ZOSTER VACCINES (1 of 2) 2011 PNEUMOCOCCAL VACCINES (50+ years) (2 of 2 - PCV) 10/03/2017 10/03/2016, 11/13/2001 HEMOGLOBIN A1C 07/02/2020 04/01/2020 POTASSIUM LEVEL 04/01/2021 04/01/2020 COLONOSCOPY 05/07/2022 05/07/2012 COLORECTAL CANCER SCREENING 05/07/2022 [...] EXAM FOR RESULT ENTRY ONLY (05/23/2023) Result [facility] Historical [facility] MAINTENANCE Final Result * MAMMOGRAPHY FOR RESULT ENTRY ONLY (03/23/2023) Result [facility] John Daley MD HEALTH MAINTENANCE Edited Result - Final * Outside Potassium Level (04/01/2020) Pathologist [facility] Potassium level - External 4.2 3.4 - 5.0 mmol/L Result [facility] Provider LAB BLOOD ORDERABLES Daria l Result * Outside HbA1c (04/01/2020) Pathologist [facility] Hemoglobin A1c - External 8.9 % Result [facility] Provider LAB BLOOD ORDERABLES Daria l Result * (ABNORMAL) Outside Serum Creatinine Level (04/01/2020) Pathologist [facility] Creatinine, serum - External 1.4(A) 0.8 - 1.3 mg/dL Result [facility] Provider LAB BLOOD ORDERABLES Daria l Result * PAP SMEAR FOR RESULT ENTRY ONLY (06/05/2019) Pathologist [facility] Pap smear NILM, HPV negative Result [facility] Provider HEALTH MAINTENANCE Final Result * COLONOSCOPY FOR RESULT ENTRY ONLY (05/07/2012) Pathologist [facility] Colonoscopy 10 yr recall Result [facility] MAINTENANCE Final Result [...] MEDICARE PART A & B Care Teams Melting Operator Relationship Specialty Start Date End Date Unknown, Unknown, MD PCP - General 07/28/23 Annmarie Quintanilla MD [address] [place] [id number] [email or web address] Endocrinology 12/06/21 Additional Source Comments The information contained in this document represents components of the legal health record. It is not the complete legal health record.[facility]
== END 2025-07-24 12:18 | disposition home or self-care (01) ==
LOC: HO.HKAS 11:33
PROVIDERS: PCP Internal Medicine; Visit Provider Internal Medicine Nephrology
DX: E11.22 Type 2 diabetes mellitus with diabetic chronic kidney disease (principal); N18.30 Chronic kidney disease, stage 3 unspecified
CPT/HCPCS: 99214

== ENCOUNTER → 2025-07-24 11:32 | Outpatient (BNVA) | payer MEDICARE, MEDICAID, SELFPAY | PROVIDERS: PCP Internal Medicine; Visit Provider Internal Medicine Nephrology | DX: E11.22 Type 2 diabetes mellitus with diabetic chronic kidney disease (principal); N18.30 Chronic kidney disease, stage 3 unspecified; Z96.41 Presence of insulin pump (external) (internal) | CPT/HCPCS: 99212 ==

== ENCOUNTER 2025-08-27 15:40 | Outpatient (REF) | payer MEDICARE, MEDICAID, SELFPAY ==
--- NOTE | ~2025-08-27 | US_ITS ---
EXAMINATION: US KIDNEY BILATERAL HISTORY: E11.22 - Type 2 diabetes mellitus with diabetic chronic kidney disease TECHNIQUE: Real-time grayscale ultrasound imaging of the kidneys was performed and images were reviewed. COMPARISON: There are no prior studies available for comparison. FINDINGS: Right kidney: The right kidney measures 9.2 x 4.2 x 5.4 cm. Renal parenchymal echotexture and thickness are normal. There are no masses. There is mild fullness of the renal collecting system. No calculi are identified. Left Kidney: The left kidney measures 8.5 x 5.7 x 4.4 cm. Renal parenchymal echotexture and thickness are normal. There are no masses. There is no hydronephrosis or renal calculi. US/US renal BI IMPRESSION: Mild fullness of the right renal collecting system. Otherwise unremarkable renal ultrasound. Electronically signed by: Deepak Tatum MD 08/27/2025 03:53 PM [facility]
--- OUTSIDE RECORDS SUMMARY | 2025-08-27 18:36 | XMS_ITS | Clinical Summary ---
Author Organization [facility] Address [address] [place] [id number] Phone Care Team Providers Care Internet Systems Administrator Name Role Phone Annmarie Quintanilla MD Unavailable [phone] Unknown, Unknown Primary Care Provider Ponce lable Allergies Active Allergy Reactions Criticality Noted Date Comments Exenatide Microspheres Itching,Other (Se e Comments) 06/17/2020 Lumps at injection site Insulin Glargine Itching,Other (See Comments) 06/17/2020 Lumps at injection site Medications timolol (TIMOPTIC) 0.25 % ophthalmic solution Place 1 drop into each eye 2 (two) times a day. Active diabetic supplies, miscellan. (LIQVID REMOTE CONTROL) Misc by Miscellaneous route. Active [...] EXAM FOR RESULT ENTRY ONLY (05/23/2023) Result [facility] Historical [facility] MAINTENANCE Final Result * MAMMOGRAPHY FOR RESULT ENTRY ONLY (03/23/2023) Result [facility] John Daley MD HEALTH MAINTENANCE Edited Result - Final * Outside Potassium Level (04/01/2020) Pathologist [facility] Potassium level - External 4.2 3.4 - 5.0 mmol/L Result [facility] Provider LAB BLOOD ORDERABLES Daria l Result * Outside HbA1c (04/01/2020) Pathologist [facility] Hemoglobin A1c - External 8.9 % Result [facility] Provider LAB BLOOD ORDERABLES Daria l Result * (ABNORMAL) Outside Serum Creatinine Level (04/01/2020) Pathologist [facility] Creatinine, serum - External 1.4(A) 0.8 - 1.3 mg/dL Result [facility] Provider LAB BLOOD ORDERABLES Daria l Result * PAP SMEAR FOR RESULT ENTRY ONLY (06/05/2019) Pathologist [facility] Pap smear NILM, HPV negative Result [facility] Provider HEALTH MAINTENANCE Final Result * COLONOSCOPY FOR RESULT ENTRY ONLY (05/07/2012) Pathologist [facility] Colonoscopy 10 yr recall Result [facility] HEALTH MAINTENANCE Final Result [...] MEDICARE PART A & B Care Teams Internet Systems Administrator Relationship Specialty Start Date End Date Unknown, Unknown, MD PCP - General 07/28/23 Annmarie Quintanilla MD [address] [place] [id number] [email or web address] Endocrinology 12/06/21 Additional Source Comments The information contained in this document represents components of the legal health record. It is not the complete legal health record.[facility]
== END 2025-08-27 15:41 | disposition home or self-care (01) ==
LOC: HO.HMGCX 15:40
PROVIDERS: PCP Internal Medicine; Visit Provider Internal Medicine Nephrology
DX: E11.22 Type 2 diabetes mellitus with diabetic chronic kidney disease (principal); N18.30 Chronic kidney disease, stage 3 unspecified
CPT/HCPCS: 76775

== ENCOUNTER → 2025-08-27 15:43 | Outpatient (BNV) | payer MEDICARE, MEDICAID, SELFPAY | PROVIDERS: PCP Internal Medicine; Visit Provider Radiology Diagnostic Radiology | DX: E11.22 Type 2 diabetes mellitus with diabetic chronic kidney disease (principal) | CPT/HCPCS: 76775 ==